=== PATIENT | female | born 1995 | race African-American/Black ===

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

== ENCOUNTER 2017-02-17 21:17 | Emergency (ER) | payer MEDICAID ==
[~2017-02-17] VITALS: Ht 154.9 cm; Wt 59.0 kg
[~2017-02-17 21:17] MED LIST changes: +MACROBID100 MG ORAL
--- NOTE | 2017-02-17 21:55 | Emergency Room Report ---
History of Present Illness General Chief Complaint: Flu Like Symptoms Source: Patient Present Illness [facility] The patient presents with cough and wheezing. The cough is not productive. She also has right ear pain. No sore throat. This for 2 weeks. She's not sure she's or not. She denies any dysuria. There's nausea. Her doctors have not prescribed inhalers for her. No vomit or change in bowels. No chest pain. Not worst attack. Has had prednisone in past. Sore throat, right ear pain, wheezing. Allergies: Coded Allergies: PEANUT (Verified Allergy, Severe, Hives, 02/17/17) LACTOSE (Verified Allergy, Mild, 02/17/17) Patient History Past Medical History: see triage record Social History: Denies: smoking Social History Narrative works security Last Menstrual Period: 01/29/17 Now: No : 0 Reviewed Nursing Documentation: PMH: Agreed, PSxH: Agreed Nursing Documentation-PMH Past Medical History: No History, Except For Hx Cardiac Problems: No Hx Asthma: Yes Hx Gastrointestinal Problems: No Hx Neurological Problems: No Review of Systems All Other Systems: negative except mentioned in HPI Physical Exam Vital Signs Date Time Temp Pulse Resp B/P Pulse Ox O2 Delivery O2 Flow Rate FiO2 02/17/17 21:29 98.4 76 16 112/68 98 Room Air Sp02 EP Interpretation: reviewed, normal General Appearance: well appearing, no apparent distress, GCS 15 Head: normocephalic, atraumatic ENT: normal pharynx, moist mucus membranes, other - TM R with redness, L normal Neck: full range of motion, supple Respiratory: no respiratory distress, speaking full sentences, wheezing, expiration Cardiovascular #1: regular rate, rhythm Gastrointestinal: normal inspection, normal bowel sounds Musculoskeletal: digits/nails normal, gait/station normal, normal range of motion, no calf tenderness Neurologic: alert, oriented x3, normal gait, grossly normal Psychiatric: mood/affect normal Skin: no rash Medical Decision Making Diagnostic Impression: Primary Impression: Otitis media Qualified Codes: H66.001 - Acute suppurative otitis media without spontaneous rupture of ear drum, right ear Additional Impression: Bronchospasm ER Course Patient with worsened asthma and R ear pain. Ddx: asthma, bronchitis, om, viral process. Need to exclude . Tx with breathing treatments. Also antibiotics indicated. Xrray not indicated. UA neg. Patient improved with treatment. Patient stable for outpatient observation and treatment. Last Vital Signs Date Time Temp Pulse Resp B/P Pulse Ox O2 Delivery O2 Flow Rate FiO2 02/17/17 23:09 98.4 16 112/68 97 Room Air 02/17/17 22:16 82 Status: improved Disposition: HOME, SELF-CARE Condition: Improved Scripts Albuterol Sulfate* (ALBUTEROL SULFATE MDI*) 8.5 Gm Hfa.aer.ad 2 PUFF INH Q6H, #1 EA 1 Refill Prov: Qasim Haley M.D. 02/17/17 Chlorpheniramine Maleate (CHLOR-TRIMETON) 4 Mg Tablet 4 MG PO Q6HR Y for congestion, #14 TAB Prov: Qasim Haley M.D. 02/17/17 Acetaminophen (Tylenol) 325 Mg Tablet 650 MG ORAL Q6H Y for Prn Pain/Headache/Temp > 101, #20 TAB 0 Refills Prov: Qasim Haley M.D. 02/17/17 Amoxicillin* (AMOXIL*) 500 Mg Capsule 500 MG ORAL THREE TIMES A DAY, #21 CAP Prov: Qasim Haley M.D. 02/17/17 Referrals: [facility],REFERRING (PCP) Qasim Haley M.D. February 17, 2017 21:55
[2017-02-17] MEDS ORDERED: Albuterol ud Inhalation HHN ONE (22:00)
[2017-02-17 22:30] LABS: APPEARANCE,URINE CLEAR; KETONES,URINE NEGATIVE (NEGATIVE); LEUKOCYTE ESTERASE ,URINE 3+ (NEGATIVE); NITRITE,URINE NEGATIVE (NEGATIVE); PH,URINE 7 (4.5-8.0); PROTEIN,URINE NEGATIVE (NEGATIVE); UROBILINOGEN,URINE NORMAL MG/DL (0.0-1.0)
[2017-02-17] MEDS ORDERED: ALBUTEROL SULF8.5 GM INH (22:47)
[2017-02-17] MEDS ORDERED: CHLOR-TRIMETON4 MG PO (22:47)
[2017-02-17] MEDS ORDERED: AMOXICILLIN500 MG ORAL (22:47)
[2017-02-17] MEDS ORDERED: TYLENOL325 MG ORAL (22:47)
[2017-02-17 22:53] LABS: BACTERIA,URINE FEW /HPF; RBC,URINE 0-2 /HPF (0 - 2); SQUAMOUS EPITHELIAL CELL,UR MODERATE /LPF (NONE/OCC)
[2017-02-17 23:09] VITALS: BP 112/68
== END 2017-02-17 23:14 | disposition home or self-care (01) ==
LOC: EMR 21:53
DX: H66.001 Acute suppurative otitis media without spontaneous rupture of ear drum, right ear (principal); J98.01 Acute bronchospasm; Z91.010 Allergy to peanuts; E73.9 Lactose intolerance, unspecified; J45.909 Unspecified asthma, uncomplicated
CPT/HCPCS: 81003; 81025; 94640; 94664; 99284

== ENCOUNTER 2017-05-25 21:19 | Emergency (ER) | payer MEDICAID ==
[~2017-05-25] VITALS: Ht 157.5 cm; Wt 57.2 kg
[~2017-05-25 21:19] MED LIST changes: +AMOXICILLIN500 MG ORAL; +CHLOR-TRIMETON4 MG PO
[2017-05-25] MEDS ORDERED: NKM (21:28)
[2017-05-25 21:31] VITALS: BP 108/64
--- NOTE | 2017-05-25 21:41 | Emergency Room Report ---
History of Present Illness General Chief Complaint: General Complaint Source: Patient Present Illness HPI Is a 21-year-old female with a history of asthma. She presents with chief complaint of not having her menstrual flow for 3 months. Also complaining of feeling nauseous and occasional vomiting the last 2 weeks. No breast tenderness. No abdominal pain. No bleeding. She said she felt weak but no fever or chills and no cough or congestion. No urinary complaint. She started control pill about 2 months ago. Was on it only for short period time. It did not agree with her and she stopped. She did have a negative test prior to be on control pill. Allergies: Coded Allergies: PEANUT (Verified Allergy, Severe, Hives, 02/17/17) LACTOSE (Verified Allergy, Mild, 02/17/17) Patient History Past Medical History: see triage record, old chart reviewed, asthma Past Surgical History: none Pertinent Family History: none Social History: Denies: smoking Last Menstrual Period: 3 months ago Now: No - Possible Immunizations: other Reviewed Nursing Documentation: PMH: Agreed, PSxH: Agreed Nursing Documentation-PMH Past Medical History: No Stated History Hx Cardiac Problems: No Hx Asthma: Yes Hx Gastrointestinal Problems: No Hx Neurological Problems: No Review of Systems Constitutional: Reports: weakness Eye: Denies: blurred vision, eye pain ENT: Denies: ear pain, nose congestion, throat swelling Respiratory: Denies: cough, shortness of breath Cardiovascular: Denies: chest pain, palpitations Gastrointestinal: Reports: nausea, vomiting, Denies: abdominal pain, diarrhea Musculoskeletal: Denies: back pain, joint pain Skin: Denies: rash Neurological: Denies: headache, numbness Endocrine: Denies: increased thirst, increased urine Hematologic/Lymphatic: Denies: easy bruising All Other Systems: negative except mentioned in HPI Physical Exam Vital Signs Date Time Temp Pulse Resp B/P Pulse Ox O2 Delivery O2 Flow Rate FiO2 05/25/17 21:22 98.2 72 16 108/64 99 Room Air vitals normal Sp02 EP Interpretation: reviewed, normal General Appearance: well appearing, no apparent distress, alert Head: normocephalic, atraumatic Eyes: bilateral eye EOMI, bilateral eye PERRL ENT: hearing grossly normal, normal pharynx Neck: full range of motion, supple, no meningismus Respiratory: chest non-tender, lungs clear, normal breath sounds Cardiovascular #1: regular rate, rhythm, no murmur Gastrointestinal: normal bowel sounds, non tender, no mass, no organomegaly, no bruit, non-distended Musculoskeletal: back normal, gait/station normal, normal range of motion Psychiatric: mood/affect normal Skin: warm/dry Medical Decision Making Diagnostic Impression: Primary Impression: UTI (urinary tract infection) Qualified Codes: N30.00 - Acute cystitis without hematuria Additional Impression: First trimester ER Course Is presents with symptoms consistent with morning sickness from . My bedside transabdominal ultrasound showed a live IUP with good movement. Heart rate was around 130. By my estimation, this is about 8-10 weeks. Urine showed leukocyte esterase and a few WBC. I will go ahead and cover with antibiotics. No evidence of ectopic. Patient is not on fertility medication. Last Vital Signs Date Time Temp Pulse Resp B/P Pulse Ox O2 Delivery O2 Flow Rate FiO2 05/25/17 21:31 98.2 72 16 108/64 99 Room Air Status: improved Disposition: HOME, SELF-CARE Condition: Stable Scripts Ondansetron (Zofran) 4 Mg Tablet 4 MG ORAL Q6H Y for Nausea & Vomiting, #30 TAB 0 Refills Prov: JIM BOWLES M.D. 05/25/17 Cmb#95/Iron/Fa/Dha ( + DHA COMBO PACK) 1 Each Combo..pkg 1 EACH PO DAILY, #90 PACK Prov: JIM BOWLES M.D. 05/25/17 Cephalexin* (KEFLEX*) 500 Mg Capsule 500 MG ORAL TID, #21 CAP 0 Refills Prov: JIM BOWLES M.D. 05/25/17 Additional Instructions: Followup with your DrMingo in 7 days. Return for pain or bleeding. You will be referred to see an DIRECTOR OF CARDIAC REHABILITATION. JIM BOWLES M.D. May 25, 2017 21:41
[2017-05-25 21:52] LABS: APPEARANCE,URINE CLEAR; KETONES,URINE NEGATIVE (NEGATIVE); LEUKOCYTE ESTERASE ,URINE 3+ (NEGATIVE); NITRITE,URINE NEGATIVE (NEGATIVE); PH,URINE 6 (4.5-8.0); PROTEIN,URINE 2+ (NEGATIVE); UROBILINOGEN,URINE 1 MG/DL (0.0-1.0)
[2017-05-25 22:12] LABS: BACTERIA,URINE FEW /HPF; RBC,URINE 0-2 /HPF (0 - 2); SQUAMOUS EPITHELIAL CELL,UR FEW /LPF (NONE/OCC)
[2017-05-25 22:30] VITALS: BP 109/77
[2017-05-25] MEDS ORDERED: KEFLEX500 MG ORAL (22:31)
[2017-05-25] MEDS ORDERED: ZOFRAN4 MG ORAL (22:31)
[2017-05-25] MEDS ORDERED: PRENATAL + DHA1 EAC2 PO (22:31)
[2017-05-25 22:37] VITALS: BP 108/64
== END 2017-05-25 23:30 | disposition home or self-care (01) ==
LOC: EMR 23:03
DX: O23.41 Unspecified infection of urinary tract in pregnancy, first trimester (principal); Z3A.00 Weeks of gestation of pregnancy not specified; Z91.010 Allergy to peanuts; Z91.011 Allergy to milk products
CPT/HCPCS: 81003; 81025; 99284

== ENCOUNTER 2017-06-15 22:34 | Emergency (ER) | payer MEDICAID ==
[~2017-06-15] VITALS: Ht 157.5 cm; Wt 58.5 kg
[~2017-06-15 22:34] MED LIST changes: +PRENATAL + DHA1 EAC2 PO; +ZOFRAN4 MG ORAL
[2017-06-15] MEDS ORDERED: Acetaminophen 500mg (ES) tab ORAL ONE (23:30)
[2017-06-15 23:33] LABS: APPEARANCE,URINE CLEAR; KETONES,URINE NEGATIVE (NEGATIVE); NITRITE,URINE NEGATIVE (NEGATIVE); PH,URINE 7 (4.5-8.0); PROTEIN,URINE NEGATIVE (NEGATIVE); UROBILINOGEN,URINE NORMAL MG/DL (0.0-1.0)
--- NOTE | 2017-06-15 23:37 | Emergency Room Report ---
History of Present Illness General Chief Complaint: Abdominal Pain Source: Patient, Family Member Present Illness HPI Is a 21-year-old female who is 1 para 0, approximately 13 weeks . She presents with chief complaint of left side pain. Onset for last 3 days. Crampy in nature. No nausea no vomiting. No dysuria frequency. Took Tylenol without much relief. Mateo seen at [facility] with ultrasound done. She also has puffiness to her eyes. She said she got a new puppy and seemed to be allergic to it. Has not anything for it. Allergies: Coded Allergies: PEANUT (Verified Allergy, Severe, Hives, 02/17/17) LACTOSE (Verified Allergy, Mild, 02/17/17) Patient History Past Medical History: see triage record, old chart reviewed Past Surgical History: none Social History: Denies: smoking Last Menstrual Period: Now: Yes Immunizations: other Reviewed Nursing Documentation: PMH: Agreed, PSxH: Agreed Nursing Documentation-PMH Hx Cardiac Problems: No Hx Asthma: Yes Hx Gastrointestinal Problems: No Hx Neurological Problems: No Review of Systems Eye: Denies: eye pain, blurred vision ENT: Denies: ear pain, nose congestion, throat swelling Respiratory: Denies: cough, shortness of breath Cardiovascular: Denies: chest pain, palpitations Gastrointestinal: Reports: abdominal pain, Denies: diarrhea, nausea, vomiting Musculoskeletal: Denies: back pain, joint pain Skin: Denies: rash Neurological: Denies: headache, numbness Endocrine: Denies: increased thirst, increased urine Hematologic/Lymphatic: Denies: easy bruising All Other Systems: negative except mentioned in HPI Physical Exam Vital Signs Date Time Temp Pulse Resp B/P (MAP) Pulse Ox O2 Delivery O2 Flow Rate FiO2 06/15/17 22:46 98.2 71 16 115/75 100 Room Air vitals normal Sp02 EP Interpretation: reviewed, normal General Appearance: well appearing, no apparent distress, alert Head: normocephalic, atraumatic Eyes: bilateral eye PERRL, bilateral eye EOMI, bilateral eye other - Mild puffiness to the left upper eyelid ENT: hearing grossly normal, normal pharynx Neck: full range of motion, supple, no meningismus Respiratory: chest non-tender, lungs clear, normal breath sounds Cardiovascular #1: regular rate, rhythm, no murmur Gastrointestinal: normal bowel sounds, non tender, no mass, no organomegaly, no bruit, non-distended, other - Gravid Musculoskeletal: back normal, gait/station normal, normal range of motion Neurologic: normal inspection, alert, oriented x3 Psychiatric: mood/affect normal Skin: warm/dry Medical Decision Making Diagnostic Impression: Primary Impression: Abdominal pain Qualified Codes: R10.32 - Left lower quadrant pain Additional Impression: Allergy Qualified Codes: T78.40XA - Allergy, unspecified, initial encounter ER Course Patient with abdominal pain during . No evidence of infection. No evidence of ectopic. Most likely round ligament pain. My bedside ultrasound showed a active live IUP. Good heartbeat. We'll discharge home. Last Vital Signs Date Time Temp Pulse Resp B/P (MAP) Pulse Ox O2 Delivery O2 Flow Rate FiO2 06/15/17 22:46 98.2 71 16 115/75 100 Room Air Status: improved Disposition: HOME, SELF-CARE Scripts Loratadine (CLARITIN) 10 Mg Capsule 10 MG ORAL DAILY, #30 CAP Prov: JIM BOWLES M.D. 06/15/17 Patient Instructions: Abdominal Pain During Additional Instructions: Followup with your DrMingo in 2-5 days. Return if worse. JIM BOWLES M.D. Jun 15, 2017 23:37
[2017-06-15 23:39] LABS: LEUKOCYTE ESTERASE ,URINE NEGATIVE (NEGATIVE)
[2017-06-15] MEDS ORDERED: CLARITIN10 M2 ORAL (23:56)
[2017-06-16 00:01] VITALS: BP 115/75
== END 2017-06-16 00:01 | disposition home or self-care (01) ==
LOC: EMR 23:05
DX: O26.891 Other specified pregnancy related conditions, first trimester (principal); Z3A.13 13 weeks gestation of pregnancy; R10.9 Unspecified abdominal pain; T78.40XA Allergy, unspecified, initial encounter; X58.XXXA Exposure to other specified factors, initial encounter; Z88.8 Allergy status to other drugs, medicaments and biological substances; J45.909 Unspecified asthma, uncomplicated; Z91.010 Allergy to peanuts
CPT/HCPCS: 81003; 99283

== ENCOUNTER 2017-07-10 11:00 | Emergency (ER) | payer MEDICAID ==
[~2017-07-10] VITALS: Ht 157.5 cm; Wt 59.0 kg
[~2017-07-10 11:00] MED LIST changes: +CLARITIN10 M2 ORAL
--- NOTE | 2017-07-10 11:31 | Emergency Room Report ---
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 and was not able to be seen denies any vomiting or diarrhea Patient was due for her ultrasound today Denies any dysuria frequency denies any flank pain denies any chest pain or short of breath Denies any vaginal bleeding or spotting Allergies: Coded Allergies: PEANUT (Verified Allergy, Severe, Hives, 02/17/17) LACTOSE (Verified Allergy, Mild, 02/17/17) Uncoded Allergies: DAIRY PRODUCTS (Allergy, Unknown, 07/10/17) Patient History Past Medical History: see triage record Pertinent Family History: none Last Menstrual Period: 02/2017 Now: Yes : 1 Reviewed Nursing Documentation: PMH: Agreed, PSxH: Agreed Nursing Documentation-PMH Past Medical History: No History, Except For Hx Cardiac Problems: No Hx Asthma: Yes Hx Gastrointestinal Problems: No Hx Neurological Problems: No Review of Systems All Other Systems: negative except mentioned in HPI Physical Exam Vital Signs Date Time Temp Pulse Resp B/P (MAP) Pulse Ox O2 Delivery O2 Flow Rate FiO2 07/10/17 11:05 97.5 71 14 107/69 100 Room Air Sp02 EP Interpretation: reviewed, normal General Appearance: well appearing, no apparent distress Head: normocephalic, atraumatic Eyes: bilateral eye PERRL, bilateral eye EOMI ENT: hearing grossly normal, normal pharynx, TMs + canals normal, uvula midline Neck: full range of motion, supple, no meningismus, no bony tend Respiratory: lungs clear, normal breath sounds, no rhonchi, no respiratory distress, no retraction, no accessory muscle use Cardiovascular #1: normal peripheral pulses, regular rate, rhythm, no edema, no gallop, no JVD, no murmur Gastrointestinal: normal bowel sounds, non tender, no mass, no guarding, no hernia, no pulsatile mass, no rebound, other - abdomen is palpable Genitourinary: no CVA tenderness Musculoskeletal: normal inspection Neurologic: oriented x3, responsive, 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, motor strength/ tone normal, sensory intact Psychiatric: mood/affect normal Skin: normal color, no rash, warm/dry, palpation normal Lymphatic: normal inspection, no adenopathy Medical Decision Making Diagnostic Impression: Primary Impression: UTI (urinary tract infection) ER Course Patient refused blood work which can limit the examination and workup Patient's urine did show positive bacteria She is placed on oral antibiotics for this Patient understands that without blood work it is difficult to evaluate kidney injury and other concerning pathology heart tone reveals heart rate in the 130s, there is no other emergency criteria for pelvic ultrasound given the lack of any cramping or bleeding And the patient stable for close outpatient followup Labs Test 07/10/17 11:25 Urine Color Pale yellow Urine Appearance Cloudy Urine pH 7 (4.5-8.0) Urine Specific Rheems 1.005 (1.005-1.035) Urine Protein Negative (NEGATIVE) Urine Glucose (UA) Negative (NEGATIVE) Urine Ketones Negative (NEGATIVE) Urine Occult Blood Negative (NEGATIVE) Urine Nitrite Negative (NEGATIVE) Urine Bilirubin Negative (NEGATIVE) Urine Urobilinogen Normal MG/DL (0.0-1.0) Urine Leukocyte Esterase 3+ (NEGATIVE) Urine RBC 2-4 /HPF (0 - 2) Urine WBC 15-20 /HPF (0 - 2) Urine Squamous Epithelial Cells Many /LPF (NONE/OCC) Urine Amorphous Sediment Few /LPF (NONE) Urine Bacteria Moderate /HPF (NONE) Last Vital Signs Date Time Temp Pulse Resp B/P (MAP) Pulse Ox O2 Delivery O2 Flow Rate FiO2 07/10/17 11:05 97.5 71 14 107/69 100 Room Air Status: improved Disposition: HOME, SELF-CARE Condition: Improved Scripts Pnv Cmb#21/Iron/Folic Acid ( COMPLETE CAPLET) 1 Each Tablet 1 EACH PO DAILY, #20 TAB Prov: MOLLY DUNN.OMingo 07/10/17 Nitrofurantoin Monohyd/M-Cryst* (MACROBID 100 MG*) 100 Mg Capsule 100 MG ORAL EVERY 12 HOURS for 7 Days, CAP Prov: MOLLY DUNN D.O. 07/10/17 Referrals: [facility],REFERRING (PCP) Additional Instructions: Patient is provided with the discharge instructions notified to follow up with primary doctor in the next 2-3 days otherwise return to the er with any worsening symptoms. Please note that this report is being documented using DRAGON technology. This can lead to erroneous entry secondary to incorrect interpretation by the dictating instrument. MOLLY DUNN D.O. Jul 10, 2017 11:31
[2017-07-10 11:36] LABS: APPEARANCE,URINE CLOUDY; KETONES,URINE NEGATIVE (NEGATIVE); LEUKOCYTE ESTERASE ,URINE 3+ (NEGATIVE); NITRITE,URINE NEGATIVE (NEGATIVE); PH,URINE 7 (4.5-8.0); PROTEIN,URINE NEGATIVE (NEGATIVE); UROBILINOGEN,URINE NORMAL MG/DL (0.0-1.0)
[2017-07-10 11:45] LABS: AMORPHOUS SEDIMENT,UR FEW /LPF; BACTERIA,URINE MODERATE /HPF; SQUAMOUS EPITHELIAL CELL,UR MANY /LPF (NONE/OCC); WBC,URINE 15-20 /HPF (0 - 2)
[2017-07-10] MEDS ORDERED: NITROFURANTOIN100 M2 ORAL (12:08)
[2017-07-10] MEDS ORDERED: PRENATAL COMPL1 EAC1 PO (12:11)
[2017-07-10 12:23] VITALS: BP 110/76
[2017-07-10 12:24] VITALS: BP 107/69
== END 2017-07-10 12:17 | disposition home or self-care (01) ==
LOC: EMR 11:25
DX: O26.892 Other specified pregnancy related conditions, second trimester (principal); Z3A.17 17 weeks gestation of pregnancy; R10.13 Epigastric pain; J45.909 Unspecified asthma, uncomplicated; Z91.011 Allergy to milk products; Z91.010 Allergy to peanuts
CPT/HCPCS: 81003; 87086; 99283

== ENCOUNTER 2017-09-08 09:07 | Emergency (ER) | payer MEDICAID ==
[~2017-09-08] VITALS: Ht 157.5 cm; Wt 70.3 kg
[~2017-09-08 09:07] MED LIST changes: +NITROFURANTOIN100 M2 ORAL; +PRENATAL COMPL1 EAC1 PO
[2017-09-08 09:20] VITALS: BP 108/61
[2017-09-08 09:51] LABS: APPEARANCE,URINE CLEAR; KETONES,URINE NEGATIVE (NEGATIVE); LEUKOCYTE ESTERASE ,URINE 3+ (NEGATIVE); NITRITE,URINE NEGATIVE (NEGATIVE); PH,URINE 7 (4.5-8.0); PROTEIN,URINE 1+ (NEGATIVE); UROBILINOGEN,URINE NORMAL MG/DL (0.0-1.0)
[2017-09-08 09:54] LABS: BASOPHILS % (AUTO) 0.5 % (0.0-2.0); MEAN CORPUSCULAR HEMOGLOBIN 33.4 PG (27.0-31.0); MEAN CORPUSCULAR HGB CONC 35.2 G/DL (32.0-36.0); MEAN CORPUSCULAR VOLUME 95 FL (80-99); MEAN PLATELET VOLUME 8.2 FL (6.5-10.1); MONOCYTES % (AUTO) 6.3 % (1.0-10.0); NEUTROPHILS % (AUTO) 69.2 % (45.0-75.0); PLATELET COUNT 216 K/UL (150-450); RED BLOOD COUNT 3.64 M/UL (4.20-5.40); RED CELL DISTRIBUTION WIDTH 11.3 % (11.6-14.8); WHITE BLOOD COUNT 8.6 K/UL (4.8-10.8)
--- NOTE | 2017-09-08 09:57 | Emergency Room Report ---
History of Present Illness General Chief Complaint: Headache Source: Patient Present Illness HPI 21-year-old female, 26 weeks , p/w PHILLIPS for 3 days. Patient describes PHILLIPS as gradual in onset, throbbing in nature, localized to R side of head, non-radiating, constant, 8/10 in severity. Denies photophobia, phonophobia. Patient states that she has had a mild headache at the beginning of the , however no other history of headaches in the past Denies fever, chills, neck pain, blurry vision, motor/sensory weakness. Allergies: Coded Allergies: PEANUT (Verified Allergy, Severe, Hives, 02/17/17) LACTOSE (Verified Allergy, Mild, 02/17/17) Uncoded Allergies: DAIRY PRODUCTS (Allergy, Unknown, 07/10/17) Patient History Past Medical History: see triage record Past Surgical History: none Pertinent Family History: none Last Menstrual Period: february Now: Yes - 26 weeks : 1 Reviewed Nursing Documentation: PMH: Agreed, PSxH: Agreed Nursing Documentation-PMH Past Medical History: No History, Except For Hx Cardiac Problems: No Hx Asthma: Yes Hx Gastrointestinal Problems: No Hx Neurological Problems: No Review of Systems All Other Systems: negative except mentioned in HPI Physical Exam Vital Signs Date Time Temp Pulse Resp B/P (MAP) Pulse Ox O2 Delivery O2 Flow Rate FiO2 09/08/17 09:08 97.9 82 18 113/64 99 Room Air Sp02 EP Interpretation: reviewed, normal General Appearance: alert, GCS 15, non-toxic, mild distress Head: normocephalic, atraumatic Eyes: bilateral eye normal inspection, bilateral eye PERRL, bilateral eye EOMI ENT: normal ENT inspection, normal pharynx, normal voice, moist mucus membranes Neck: normal inspection, full range of motion, supple Respiratory: normal inspection, lungs clear, normal breath sounds, no respiratory distress, no retraction, no wheezing, speaking full sentences, chest symmetrical Cardiovascular #1: normal inspection, regular rate, rhythm, no edema, normal capillary refill Cardiovascular #2: 2+ radial (R), 2+ radial (L) Gastrointestinal: normal inspection, non tender, soft, non-distended, no guarding Musculoskeletal: normal inspection, back normal, normal range of motion, non- tender Neurologic: normal inspection, alert, oriented x3, responsive, violin repairer III-XII nml as tested, motor strength/tone normal, sensory intact, normal gait, speech normal Psychiatric: normal inspection, judgement/insight normal, memory normal Skin: normal inspection, normal color, no rash, warm/dry, well hydrated, normal turgor Medical Decision Making Diagnostic Impression: Primary Impression: Headache Additional Impression: ER Course 21-year-old female with headache for 3 days DDX: Primary PHILLIPS such as migraine, tension PHILLIPS, cluster. vs. dehydration Given that patient is , cerebral venous thrombosis isn't differential, preeclampsia although patient is not hypertensive Other serious diagnoses on differential such as intracranial bleed/sah Very low suspicion for meningitis/encephalitis -- there are no neurological signs/symptoms/findings on physical exam and patient appears nontoxic. Plan: Pain control Tylenol, fluid ER course: Patient continues to appear nontoxic, aox3, no neurologic symptoms. Patient still complains of mild headache although she does feel better. She has been conversing with mother at bedside, on her phone, does not appear to be in acute distress MR venogram of the brain does not demonstrate cerebral venous thrombosis Patient noted to have a beta-hCG of around 5000, which can be normal at 26 weeks , however will perform pelvic ultrasound Patient states that her last pelvic ultrasound was performed about 3 weeks ago, and she was told it was normal US performed -- IUP with FHR 135 BPs during ED stay have been normal she feels much better and wants to eat will dc home Disposition: Patient will be discharged to home. Patient instructed to follow up with OBGYN within 5 days. Patient also instructed to follow up with a neurologist within 1 week. Strict return precautions discussed with patient such as severe/worsening headache, nausea, vomiting, fever chills, neck pain. Patient verbalized understanding. Please note that this Emergency Department Report was dictated using edohigh lift driver technology software, occasionally this can lead to erroneous entry secondary to interpretation by the dictation equipment. Rhythm Strip EP Interpretation: Yes Rate: 90 Rhythm: NSR, no PVCs, no ectopy Laboratory Tests Test 09/08/17 09:35 White Blood Count 8.6 K/UL (4.8-10.8) Red Blood Count 3.64 M/UL (4.20-5.40) L Hemoglobin 12.2 G/DL (12.0-16.0) Hematocrit 34.6 % (37.0-47.0) L Mean Corpuscular Volume 95 FL (80-99) Mean Corpuscular Hemoglobin 33.4 PG (27.0-31.0) H Mean Corpuscular Hemoglobin Concent 35.2 G/DL (32.0-36.0) Red Cell Distribution Width 11.3 % (11.6-14.8) L Platelet Count 216 K/UL (150-450) Mean Platelet Volume 8.2 FL (6.5-10.1) Neutrophils (%) (Auto) 69.2 % (45.0-75.0) Lymphocytes (%) (Auto) 21.0 % (20.0-45.0) Monocytes (%) (Auto) 6.3 % (1.0-10.0) Eosinophils (%) (Auto) 3.0 % (0.0-3.0) Basophils (%) (Auto) 0.5 % (0.0-2.0) Prothrombin Time 9.4 SEC (9.30-11.50) Prothrombin Time INR 0.9 (0.9-1.1) PTT 32 SEC (23-33) Urine Color Yellow Urine Appearance Clear Urine pH 7 (4.5-8.0) Urine Specific [place] 1.005 (1.005-1.035) Urine Protein 1+ (NEGATIVE) H Urine Glucose (UA) Negative (NEGATIVE) Urine Ketones Negative (NEGATIVE) Urine Occult Blood 1+ (NEGATIVE) H Urine Nitrite Negative (NEGATIVE) Urine Bilirubin Negative (NEGATIVE) Urine Urobilinogen Normal MG/DL (0.0-1.0) Urine Leukocyte Esterase 3+ (NEGATIVE) H Urine RBC 2-4 /HPF (0 - 2) H Urine WBC 15-20 /HPF (0 - 2) H Urine Squamous Epithelial Cells Moderate /LPF (NONE/OCC) H Urine Amorphous Sediment Few /LPF (NONE) H Urine Bacteria Few /HPF (NONE) Urine HCG, Qualitative Positive Sodium Level 137 MMOL/L (136-145) Potassium Level 3.9 MMOL/L (3.5-5.1) Chloride Level 104 MMOL/L (98-107) Carbon Dioxide Level 24 MMOL/L (21-32) Anion Gap 9 mmol/L (5-15) Blood Urea Nitrogen 7 mg/dL (7-18) Creatinine 0.6 MG/DL (0.55-1.30) Estimate Glomerular Filtration Rate > 60 mL/min (>60) Glucose Level 88 MG/DL (74-106) Calcium Level 9.0 MG/DL (8.5-10.1) Total Bilirubin 0.2 MG/DL (0.2-1.0) Aspartate Amino Transferase (AST) 9 U/L (15-37) L Alanine Aminotransferase (ALT) 20 U/L (12-78) Alkaline Phosphatase 59 U/L (46-116) Total Protein 7.3 G/DL (6.4-8.2) Albumin 3.1 G/DL (3.4-5.0) L Globulin 4.2 g/dL Albumin/Globulin Ratio 0.7 (1.0-2.7) L Human Chorionic Gonadotropin, Quant 5073 mIU/mL (1-6) H CT/MRI/US Diagnostic Results CT/MRI/US Diagnostic Results #1: Imaging Test Ordered: MR venogram of brain Impression Procedure: MRA Head no Contrast Indications: PAIN, headache, patient Technique: 2-D [id number] images obtained with arterial saturation bands obtained through the brain. MIP reconstructions were generated in multiple rotational projections Comparison: None Findings: The superior sagittal sinus, transverse and sigmoid sinuses, upstream internal jugular veins, the cerebral veins, and cortical veins all appear patent , without signal void or other findings to suggest acute thrombosis. Impression: Negative for evidence of cerebral venous thrombosis. CT/MRI/US Diagnostic Results #2: Imaging Test Ordered: US pelvic Impression IUP with FHR 135 Last Vital Signs Date Time Temp Pulse Resp B/P (MAP) Pulse Ox O2 Delivery O2 Flow Rate FiO2 09/08/17 09:08 97.9 82 18 113/64 99 Room Air Disposition: HOME, SELF-CARE Condition: Improved [facility]errals: [facility] (PCP) Viri Lyons M.D. Sep 08, 2017 09:57
[2017-09-08 10:05] LABS: AMORPHOUS SEDIMENT,UR FEW /LPF; BACTERIA,URINE FEW /HPF; SQUAMOUS EPITHELIAL CELL,UR MODERATE /LPF (NONE/OCC); WBC,URINE 15-20 /HPF (0 - 2)
[2017-09-08 10:06] LABS: INR 0.9 (0.9-1.1); PROTHROMBIN TIME 9.4 SEC (9.30-11.50)
[2017-09-08 10:08] LABS: ANION GAP 9 mmol/L (5-15); CARBON DIOXIDE 24 MMOL/L (21-32); CHLORIDE 104 MMOL/L (98-107); CREATININE 0.6 MG/DL (0.55-1.30); GLOMERULAR FILTRATION RATE > 60 mL/min (>60); POTASSIUM 3.9 MMOL/L (3.5-5.1); SODIUM 137 MMOL/L (136-145)
[2017-09-08 10:15] LABS: ALANINE AMINOTRANSFERASE 20 U/L (12-78); ALBUMIN/GLOBULIN RATIO 0.7 (1.0-2.7); ASPARTATE AMINO TRANSFERASE 9 U/L (15-37); TOTAL PROTEIN 7.3 G/DL (6.4-8.2)
[2017-09-08 11:29] VITALS: BP 99/65
--- NOTE | 2017-09-08 11:53 | Diagnostic Imaging Report ---
Indications: PAIN, headache, patient Technique: 2-D [id number] images obtained with arterial saturation bands obtained through the brain. MIP reconstructions were generated in multiple rotational projections Comparison: None Findings: The superior sagittal sinus, transverse and sigmoid sinuses, upstream internal jugular veins, the cerebral veins, and cortical veins all appear patent, without signal void or other findings to suggest acute thrombosis. Impression: Negative for evidence of cerebral venous thrombosis.
--- NOTE | 2017-09-08 13:43 | Diagnostic Imaging Report ---
Indication: Positive test, pelvic pain Technique: Transabdominal images Comparison: None Findings: There is a single live intrauterine . This demonstrates breech presentation. There is anterior fundal placenta. This clears the internal cervical os. There is positive heart activity, heart rate 135 beats per minute. The cervix is closed, endocervical canal measuring 3.4 cm in length. Normal amniotic fluid volume. measurements as follows: Biparietal diameter 65 mm, 26 weeks one day; abdominal circumference 237 mm, 25 weeks 5 days; abdominal circumference 215 mm, 26 weeks zero days; femur length 49 mm, 26 weeks 2 days. Estimated gestational age by average ultrasound measurements is 26 weeks zero days. Estimated gestational age by dates is 25 weeks 5 days. Estimated date of delivery is 12/15/2017 Only limited survey of anatomy, due to the emergent nature exam. No gross anomalies. Grossly normal spine, extremities, cord insertion, three-vessel cord, kidneys, bladder. Impression: 26 week single live intrauterine . No unusual features. heart rate 135 beats per minute Findings discussed by phone with Dr. Lyons in the emergency room at the time of interpretation
[2017-09-08 13:50] VITALS: BP 105/58
== END 2017-09-08 13:45 | disposition home or self-care (01) ==
LOC: EMR 09:36
DX: O26.892 Other specified pregnancy related conditions, second trimester (principal); Z3A.26 26 weeks gestation of pregnancy; R51 Headache; Z88.8 Allergy status to other drugs, medicaments and biological substances; Z91.010 Allergy to peanuts; J45.909 Unspecified asthma, uncomplicated
CPT/HCPCS: 36415; 70544; 76805; 80053; 81003; 81025; 84702; 85025; 85610; 85730; 87086; 96360; 96361; 99284

== ENCOUNTER 2017-10-30 19:43 | Emergency (ER) | payer MEDICAID ==
[~2017-10-30] VITALS: Ht 91.4 cm; Wt 80.3 kg
[2017-10-30] MEDS ORDERED: ACETAMINOPHEN325 M1 ORAL (20:00)
[2017-10-30 20:10] VITALS: BP 126/68
[2017-10-30 20:14] VITALS: BP 126/68
--- NOTE | 2017-10-31 14:09 | Emergency Room Report ---
History of Present Illness General Chief Complaint: Abdominal Pain Source: Patient Present Illness HPI 22-year-old female presents ED for evaluation. Patient is 34 weeks . States she's complaining of dizziness, weakness also complaining of cramping abdominal pain which started today. Denies any vaginal bleeding or discharge. Pain is cramping, 7 at 10, nonradiating. This is her first . Denies fevers or chills. Denies nausea or vomiting. Denies chest pain or shortness of breath. No aggravating or relieving factors. Denies any other associated symptoms Allergies: Coded Allergies: PEANUT (Verified Allergy, Severe, Hives, 02/17/17) LACTOSE (Verified Allergy, Mild, 02/17/17) Uncoded Allergies: DAIRY PRODUCTS (Allergy, Unknown, 07/10/17) Patient History Past Medical History: asthma Past Surgical History: none Pertinent Family History: none Social History: Denies: smoking, alcohol use, drug use Last Menstrual Period: 03/11/17 Now: No : 1 Para: 0 Immunizations: UTD Reviewed Nursing Documentation: PMH: Agreed, PSxH: Agreed Nursing Documentation-PMH Hx Cardiac Problems: No Hx Asthma: Yes Hx Gastrointestinal Problems: No Hx Neurological Problems: No Review of Systems All Other Systems: negative except mentioned in HPI Physical Exam Vital Signs Date Time Temp Pulse Resp B/P (MAP) Pulse Ox O2 Delivery O2 Flow Rate FiO2 10/30/17 19:55 98.6 86 14 126/68 97 Room Air Sp02 EP Interpretation: reviewed, normal General Appearance: no apparent distress, alert, GCS 15, non-toxic Head: normocephalic, atraumatic Eyes: bilateral eye normal inspection, bilateral eye PERRL ENT: hearing grossly normal, normal pharynx, no angioedema, normal voice Neck: full range of motion, supple/symm/no masses Respiratory: chest non-tender, lungs clear, normal breath sounds, speaking full sentences Cardiovascular #1: regular rate, rhythm, no edema Cardiovascular #2: 2+ carotid (R), 2+ carotid (L), 2+ radial (R), 2+ radial (L) , 2+ dorsalis pedis (R), 2+ dorsalis pedis (L) Gastrointestinal: normal bowel sounds, soft, non-distended, no guarding, no rebound, other - gravid uterus Rectal: deferred Genitourinary: normal inspection, no CVA tenderness Musculoskeletal: back normal, gait/station normal, normal range of motion, non- tender Neurologic: alert, oriented x3, responsive, motor strength/tone normal, sensory intact, speech normal Psychiatric: judgement/insight normal, memory normal, mood/affect normal, no suicidal/homicidal ideation Reflexes: 3+ bicep (R), 3+ bicep (L), 3+ tricep (R), 3+ tricep (L), 3+ knee (R) , 3+ knee (L) Skin: normal color, no rash, warm/dry, well hydrated Lymphatic: no adenopathy Medical Decision Making Diagnostic Impression: Primary Impression: Qualified Codes: Z3A.34 - 34 weeks gestation of ER Course Hospital Course 22-year-old female presents to ED complaining of lower abdominal pain. 34 weeks Differential diagnoses include: gastrits, gastroenterits, ectopic , ovarian torsion/cyst, UTI Clinical course Patient placed on stretcher in ED. After initial history and physical, I explained to the patient and family that we do not have labor and delivery here. We do not have AIRLINE MECH[employer]IC. We do not have monitoring. I explained that I can ordered labs and ultrasound facility transfer to [facility]. Family patient states that they would rather go to [facility] on their own because it will be faster. Understands the risks of leaving. Patient has competency to make her own decisions. Signed AMA form. Diagnoses- Patient leaves AMA Last Vital Signs Date Time Temp Pulse Resp B/P (MAP) Pulse Ox O2 Delivery O2 Flow Rate FiO2 10/30/17 20:14 98.6 86 14 126/68 97 Room Air Status: unchanged Disposition: AGAINST MEDICAL ADVICE Condition: Unknown Referrals: [facility] (PCP) MENA LIVINGSTON M.D. Oct 31, 2017 14:09
== END 2017-10-30 20:14 | disposition left against medical advice (07) ==
LOC: EMR 20:05
DX: O26.893 Other specified pregnancy related conditions, third trimester (principal); Z3A.34 34 weeks gestation of pregnancy; J45.909 Unspecified asthma, uncomplicated; R42 Dizziness and giddiness; R53.1 Weakness; R10.9 Unspecified abdominal pain; Z91.010 Allergy to peanuts; Z91.018 Allergy to other foods
CPT/HCPCS: 99282

== ENCOUNTER 2017-12-19 21:14 | Emergency (ER) | payer MEDICAID ==
[~2017-12-19] VITALS: Ht 160 cm; Wt 91.6 kg
[~2017-12-19 21:14] MED LIST changes: +ACETAMINOPHEN325 M1 ORAL
[2017-12-19 21:36] VITALS: BP 127/86
[2017-12-19 22:24] LABS: APPEARANCE,URINE SLIGHTLY CLOUDY; BILIRUBIN, URINE NEGATIVE (NEGATIVE); COLOR,URINE PALE YELLOW; GLUCOSE, URINE (UA) NEGATIVE (NEGATIVE); KETONES,URINE NEGATIVE (NEGATIVE); LEUKOCYTE ESTERASE ,URINE 3+ (NEGATIVE); NITRITE,URINE NEGATIVE (NEGATIVE); PH,URINE 8 (4.5-8.0); PROTEIN,URINE 1+ (NEGATIVE); UROBILINOGEN,URINE NORMAL MG/DL (0.0-1.0)
[2017-12-19] MEDS ORDERED: PHENAZOPYRIDIN100 MG ORAL (22:46)
[2017-12-19] MEDS ORDERED: KEFLEX500 MG ORAL (22:46)
[2017-12-19 22:53] VITALS: BP 127/86
--- NOTE | 2017-12-20 00:36 | Emergency Room Report ---
History of Present Illness General Chief Complaint: Female Urogenital Problems Source: Patient Present Illness HPI 22-year-old female presents ED for evaluation. Patient states she is experiencing burning urination times one day. Denies fevers or chills. Denies flank pain. Denies nausea or vomiting. Patient is 4 days . Had vaginal delivery with episiotomy performed. Denies any vaginal bleeding. Denies any discharge. No other aggravating or relieving factors. Denies any other associated symptoms Allergies: Coded Allergies: PEANUT (Verified Allergy, Severe, Hives, 02/17/17) LACTOSE (Verified Allergy, Mild, 02/17/17) Uncoded Allergies: DAIRY PRODUCTS (Allergy, Unknown, 07/10/17) Patient History Past Medical History: asthma Past Surgical History: none Pertinent Family History: none Social History: Denies: smoking, alcohol use, drug use Last Menstrual Period: 4 DAYS POST Now: No Immunizations: UTD Reviewed Nursing Documentation: PMH: Agreed, PSxH: Agreed Nursing Documentation-PMH Hx Cardiac Problems: No Hx Asthma: Yes Hx Gastrointestinal Problems: No Hx Neurological Problems: No Review of Systems All Other Systems: negative except mentioned in HPI Physical Exam Vital Signs Date Time Temp Pulse Resp B/P (MAP) Pulse Ox O2 Delivery O2 Flow Rate FiO2 12/19/17 21:20 98.1 88 16 127/86 98 Room Air 98.1 Sp02 EP Interpretation: reviewed, normal General Appearance: no apparent distress, alert, GCS 15, non-toxic Head: normocephalic, atraumatic Eyes: bilateral eye normal inspection, bilateral eye PERRL ENT: hearing grossly normal, normal pharynx, no angioedema, normal voice Neck: full range of motion, supple/symm/no masses Respiratory: chest non-tender, lungs clear, normal breath sounds, speaking full sentences Cardiovascular #1: regular rate, rhythm, no edema Cardiovascular #2: 2+ carotid (R), 2+ carotid (L), 2+ radial (R), 2+ radial (L) , 2+ dorsalis pedis (R), 2+ dorsalis pedis (L) Gastrointestinal: normal bowel sounds, non tender, soft, non-distended, no guarding, no rebound Rectal: deferred Genitourinary: normal inspection, no CVA tenderness Musculoskeletal: back normal, gait/station normal, normal range of motion, non- tender Neurologic: alert, oriented x3, responsive, motor strength/tone normal, sensory intact, speech normal Psychiatric: judgement/insight normal, memory normal, mood/affect normal, no suicidal/homicidal ideation Reflexes: 3+ bicep (R), 3+ bicep (L), 3+ tricep (R), 3+ tricep (L), 3+ knee (R) , 3+ knee (L) Skin: normal color, no rash, warm/dry, well hydrated Lymphatic: no adenopathy Medical Decision Making Diagnostic Impression: Primary Impression: UTI (urinary tract infection) Qualified Codes: N39.0 - Urinary tract infection, site not specified ER Course Hospital Course 22-year-old female presents to ED complaining of dysuria. 4 days Differential diagnoses include: UTI, cystitis, pyelonephritis Clinical course Patient placed on stretcher. After initial history and physical I ordered UA given tylenol in ED for headache/pain UA + bacteria. Discussed findings with patient. We'll prescribe antibiotics, Pyridium. Patient is currently not breast-feeding Diagnosis - UTI Stable and discharged home with prescriptions for Rx Keflex, Pyridium. Instructed to followup with PMD. Return to ED if symptoms recur or worsen Labs Test 12/19/17 21:41 Urine Color Pale yellow Urine Appearance Slightly cloudy Urine pH 8 (4.5-8.0) Urine Specific [place] 1.010 (1.005-1.035) Urine Protein 1+ (NEGATIVE) Urine Glucose (UA) Negative (NEGATIVE) Urine Ketones Negative (NEGATIVE) Urine Occult Blood 5+ (NEGATIVE) Urine Nitrite Negative (NEGATIVE) Urine Bilirubin Negative (NEGATIVE) Urine Urobilinogen Normal MG/DL (0.0-1.0) Urine Leukocyte Esterase 3+ (NEGATIVE) Urine RBC 5-10 /HPF (0 - 2) Urine WBC 2-4 /HPF (0 - 2) Urine Squamous Epithelial Cells Few /LPF (NONE/OCC) Urine Bacteria Few /HPF (NONE) Last Vital Signs Date Time Temp Pulse Resp B/P (MAP) Pulse Ox O2 Delivery O2 Flow Rate FiO2 12/19/17 22:53 98.1 88 16 127/86 98 Room Air 98.1 Status: improved Disposition: HOME, SELF-CARE Condition: Stable Scripts Phenazopyridine Hcl* (PYRIDIUM*) 100 Mg Tablet 100 MG ORAL THREE TIMES A DAY for 3 Days, TAB Prov: MENA LIVINGSTON M.D. 12/19/17 Cephalexin* (KEFLEX*) 500 Mg Capsule 500 MG ORAL Q6H, #28 CAP 0 Refills Prov: MENA LIVINGSTON M.D. 12/19/17 Referrals: [facility] (PCP) Patient Instructions: Urinary Tract Infection MENA LIVINGSTON M.D. Dec 20, 2017 00:36
== END 2017-12-19 22:53 | disposition home or self-care (01) ==
LOC: EMR 22:51
DX: N39.0 Urinary tract infection, site not specified (principal); J45.909 Unspecified asthma, uncomplicated; Z91.010 Allergy to peanuts; Z91.018 Allergy to other foods
CPT/HCPCS: 81003; 99284

== ENCOUNTER 2018-04-24 11:32 | Emergency (ER) | payer MEDICAID ==
[~2018-04-24] VITALS: Ht 157.5 cm; Wt 73.9 kg
[~2018-04-24 11:32] MED LIST changes: +PHENAZOPYRIDIN100 MG ORAL
[2018-04-24 11:55] VITALS: BP 120/70
--- NOTE | 2018-04-24 12:20 | Emergency Room Report ---
History of Present Illness General Chief Complaint: Generalized Weakness Source: Patient (Corby Palomino) Present Illness HPI 22-year-old female patient presents ER with multiple complaints. Patient reports generalized weakness and pain that began in her right ankle and travel throughout the rest of her body x1 week. Patient also complains of sore throat and headache. Reports history of migraine headaches, states this feels like a migraine similar to ones in the past. Denies vision changes, denies phonophobia. Denies vomiting or diarrhea. Denies shortness of breath. Reports history of asthma, reports has not taken inhaler because has not needed medication. Denies history of cardiovascular disease. Denies neck pain. Reports Tylenol for pain symptoms yesterday and helped alleviate symptoms, has not taken medication since that time. Denies other acute symptoms. Denies abdominal pain. Denies dysuria, hematuria, frequency, urgency, vaginal discharge. Denies other acute symptoms. Reports hx of anxiety, denies taking medications currently, reports previously took medication but they did not help. Reports lots of stress at home recently. (Corby Palomino) Allergies: Coded Allergies: PEANUT (Verified Allergy, Severe, Hives, 02/17/17) LACTOSE (Verified Allergy, Mild, 02/17/17) Uncoded Allergies: DAIRY PRODUCTS (Allergy, Unknown, 07/10/17) Patient History Past Medical History: see triage record Last Menstrual Period: 04/01/2018 Reviewed Nursing Documentation: PMH: Agreed; PSxH: Agreed (Corby Palomino) Nursing Documentation-PMH Past Medical History: No History, Except For Hx Cardiac Problems: No Hx Asthma: Yes Hx Gastrointestinal Problems: No Hx Neurological Problems: No (Corby Palomino) Review of Systems All Other Systems: negative except mentioned in HPI (Corby Palomino) Physical Exam Vital Signs Date Time Temp Pulse Resp B/P (MAP) Pulse Ox O2 Delivery O2 Flow Rate FiO2 04/24/18 11:40 100.7 85 18 120/70 97 Room Air 100.8 Sp02 EP Interpretation: reviewed, normal General Appearance: well appearing, no apparent distress, alert, GCS 15, non- toxic Head: normocephalic, atraumatic Eyes: bilateral eye normal inspection, bilateral eye PERRL ENT: hearing grossly normal, normal pharynx, no angioedema, normal voice, TMs + canals normal, uvula midline, moist mucus membranes, other - no tonsillar swelling Neck: full range of motion, no bony tend Respiratory: lungs clear, normal breath sounds, no rhonchi, no respiratory distress, no accessory muscle use, no wheezing, speaking full sentences, other - no stridor; chest TTP, no deformity, no bruising, no flail chest Cardiovascular #1: regular rate, rhythm, no edema Gastrointestinal: non tender, soft, no mass, non-distended, no guarding, no rebound Genitourinary: no CVA tenderness Musculoskeletal: back normal, digits/nails normal, gait/station normal, normal range of motion, non-tender Neurologic: alert, oriented x3, responsive, motor strength/tone normal, sensory intact, cerebellar normal, normal gait, speech normal, other - negative Kernig, negative Brudzinski Psychiatric: mood/affect normal Skin: no rash Lymphatic: no adenopathy (Corby Palomino) Medical Decision Making PA Attestation Dr. Haley is my supervising Physician whom patient management has been discussed with. (Corby Palomino P.AMingo) Diagnostic Impression: Primary Impression: Acute viral syndrome ER Course Pt. presents to the ED with multiple complaints. Ddx considered but are not limited to UTI, migraine, headache, stress. DDX considered but are not limited to pharyngitis, laryngitis, URI, peritonsillar abscess, tonsillitis. Low suspicion for peritonsillar abscess, no neck stiffness, no hot potato voice , no stridor. Vital signs: are WNL, pt. is afebrile ER COURSE: Ordered Tylenol and viscous lidocaine. On PE, chest is TTP; chest pain likely musculoskeletal in nature secondary to cough, does not require cardiac workup at this time. Patient instructed to take NSAIDs as needed for pain symptoms. CXR negative for acute disease, lung clear to auscultation, no wheezes, rhonci, or rales. UA unremarkable, no nitrites, low suspicion for UTI at this time, does not require antibiotics. Urine negative, discuss results with patient. Patient presentation and symptoms consistent with possible viral syndrome, may be exacerbated by stress at home. Avoid stressors at home. Supportive care, treat symptomatically. Drink plenty of fluids, if concern for nausea and vomiting, BRAT diet: bananas, rice, applesauce, toast. Take Tylenol for pain symptoms. Return to ER for new or worsening of symptoms. patient reports feeling better prior to discharge, smiling, nontoxic appearing, ambulating independently without difficulty. Patient is afebrile prior to discharge. DISCHARGE: Rx provided for Tylenol At this time pt is stable for d/c to home. Patient is resting comfortably, in no acute distress, nontoxic appearing, talking without difficulty. Patient to take medications as instructed Will provide with patient care instructions and any necessary prescriptions. Care plan and follow-up instructions provided. Patient instructed to follow-up with primary care provider in 3 - 5 days. Patient questions asked and answered. Patient reports understanding and agreement to treatment plan. ER precautions given. Patient instructed to return to ER immediately for any new or worsening of symptoms including but not limited to increasing SOB, persistent fever, chest pain, intractable vomiting. - Please note that this Emergency Department Report was dictated using [employer]ov[employer] professional midwife technology software, occasionally this can lead to erroneous entry secondary to interpretation by the dictation equipment. Labs Test 04/24/18 12:21 Urine Color Pale yellow Urine Appearance Clear Urine pH 7 (4.5-8.0) Urine Specific [place] 1.005 (1.005-1.035) Urine Protein Negative (NEGATIVE) Urine Glucose (UA) Negative (NEGATIVE) Urine Ketones Negative (NEGATIVE) Urine Occult Blood Negative (NEGATIVE) Urine Nitrite Negative (NEGATIVE) Urine Bilirubin Negative (NEGATIVE) Urine Urobilinogen Normal MG/DL (0.0-1.0) Urine Leukocyte Esterase 2+ (NEGATIVE) Urine RBC 0-2 /HPF (0 - 2) Urine WBC 2-4 /HPF (0 - 2) Urine Squamous Epithelial Cells Few /LPF (NONE/OCC) Urine Bacteria Moderate /HPF (NONE) Urine HCG, Qualitative Negative (NEGATIVE) (Corby Palomino P.A.) Chest X-Ray Diagnostic Results Chest X-Ray Diagnostic Results : Chest X-Ray Ordered: Yes # of Views/Limited/Complete: 1 View Indication: Chest Pain EP Interpretation: Yes PA Xray: Interpretation reviewed, by supervising MD, and agrees with findings. Interpretation: no consolidation, no effusion, no pneumothorax, no acute cardiopulmonary disease Impression: No acute disease GREGORY ScribBarney Palomino PA-C (Corby Palomino P.A.) Chest X-Ray Diagnostic Results : Electronically Signed by: Radha documentation reviewed by me and is accurate, Qasim Haley MD. (Qasim Haley M.D.) Status: improved (Corby Palomino) Disposition: HOME, SELF-CARE Condition: Stable Scripts Acetaminophen* (TYLENOL EXTRA STRENGTH*) 500 Mg Tablet 500 MG ORAL Q8H PRN for Prn Headache/Temp > 101, #30 TAB 0 Refills Prov: Corby Palomino 04/24/18 Patient Instructions: Migraine Headache, [id number], Viral Respiratory Infection, [id number] Additional Instructions: Followup with primary care provider in 3 -5 days. Followup with neurologist to discuss migraine. Followup with mental health professional. Take medications as directed. Patient questions asked and answered. ER precautions given, patient instructed to return to ER immediately for any new or worsening of symptoms including but not limited to chest pain, shortness of breath, intractable vomiting, abdominal pain, syncope. saltwater gargles for sore throat. Drink plenty of fluids. BRAT diet: bananas, rice, apple sauce, toast. Corby Palomino Apr 24, 2018 12:20 Qasim Haley M.D. Apr 25, 2018 01:05
[2018-04-24 12:29] LABS: APPEARANCE,URINE CLEAR; BILIRUBIN, URINE NEGATIVE (NEGATIVE); COLOR,URINE PALE YELLOW; GLUCOSE, URINE (UA) NEGATIVE (NEGATIVE); KETONES,URINE NEGATIVE (NEGATIVE); LEUKOCYTE ESTERASE ,URINE 2+ (NEGATIVE); NITRITE,URINE NEGATIVE (NEGATIVE); PH,URINE 7 (4.5-8.0); PROTEIN,URINE NEGATIVE (NEGATIVE); UROBILINOGEN,URINE NORMAL MG/DL (0.0-1.0)
[2018-04-24] MEDS ORDERED: Acetaminophen 500mg (ES) tab ORAL ONE (12:30)
[2018-04-24] MEDS ORDERED: Lidocaine 2% Visc 15ml soln ORAL ONE (12:30)
[2018-04-24 13:02] VITALS: BP 120/80
[2018-04-24] MEDS ORDERED: TYLENOL EXTRA500 MG ORAL (13:08)
--- NOTE | 2018-04-24 13:19 | Diagnostic Imaging Report ---
Indication: Chest pain Technique: XRAY Chest 1v Comparison: 11/01/2014 Findings: Heart size and mediastinal contours are within normal limits and stable compared to the prior exam allowing for differences in technique. There is no focal consolidation, pneumothorax or pleural effusion. Osseous structures demonstrate no acute abnormality. Impression: No radiographic evidence of acute cardiopulmonary disease.
== END 2018-04-24 13:02 | disposition home or self-care (01) ==
LOC: EMR 12:35
DX: B34.9 Viral infection, unspecified (principal); R53.1 Weakness; J45.909 Unspecified asthma, uncomplicated; Z91.010 Allergy to peanuts
CPT/HCPCS: 71045; 81003; 81025; 87086; 99284

== ENCOUNTER 2018-05-01 15:30 | Emergency (ER) | payer MEDICAID ==
[~2018-05-01] VITALS: Ht 157.5 cm; Wt 73.9 kg
[~2018-05-01 15:30] MED LIST changes: +TYLENOL EXTRA500 MG ORAL
[2018-05-01 16:02] VITALS: BP 105/54
[2018-05-01] MEDS ORDERED: BENADRYL25 MG ORAL (16:09)
[2018-05-01] MEDS ORDERED: OPCON-A EYE DRO15 ML OP (16:09)
--- NOTE | 2018-05-01 16:10 | Emergency Room Report ---
History of Present Illness General Chief Complaint: Eye Problems Source: Patient Present Illness HPI 22-year-old female patient presents to the ER complaining of right eye swelling and itchiness for the past few days. Reports history of similar symptoms in the past, states that "this always happens during this time of the year because of allergies". Reports she has been scratching and rubbing her eye. Denies wearing contacts. Denies taking any medications at home for relief of symptoms. Denies vision loss or vision changes. Denies fever, chest pain, shortness of breath, vomiting, photophobia, vertigo. reports white colored crusting and right eye this morning. denies foreign body sensation, denies loss of vision, denies eye pain. Reports discomfort due to swelling of the eyelid. Denies exposure to chemicals in eye. Denies bug bite or trauma. Allergies: Coded Allergies: PEANUT (Verified Allergy, Severe, Hives, 02/17/17) LACTOSE (Verified Allergy, Mild, 02/17/17) Uncoded Allergies: DAIRY PRODUCTS (Allergy, Unknown, 07/10/17) Patient History Past Medical History: see triage record Last Menstrual Period: 04/01/18 Now: No : 1 Para: 1 Reviewed Nursing Documentation: PMH: Agreed; PSxH: Agreed Nursing Documentation-PMH Hx Cardiac Problems: No Hx Asthma: Yes Hx Gastrointestinal Problems: No Hx Neurological Problems: No Review of Systems All Other Systems: negative except mentioned in HPI Physical Exam Vital Signs Date Time Temp Pulse Resp B/P (MAP) Pulse Ox O2 Delivery O2 Flow Rate FiO2 05/01/18 15:34 98.2 72 18 110/66 98 Room Air 98.2 Sp02 EP Interpretation: reviewed, normal General Appearance: well appearing, no apparent distress, alert, GCS 15, non- toxic Head: normocephalic, atraumatic Eyes: right eye other - upper right eye lid edema, no erythema, no warmth to touch; bilateral eye normal inspection, bilateral eye PERRL, bilateral eye EOMI Medical Decision Making PA Attestation Dr. Painter is my supervising Physician whom patient management has been discussed with. Diagnostic Impression: Primary Impression: Allergic conjunctivitis ER Course Pt. presents to the ED c/o swollen eyes. Ddx considered but are not limited to allergic conjunctivitis, bacterial conjunctivitis, orbital cellulitis, URI, sinusitis. Vital signs: are WNL, pt. is afebrile ORDERS: none required at this time, the diagnosis is clinical ED COURSE: No pain with eye movement, no fever, no vision changes, no proptosis, no diplopia, low suspicion for postseptal cellulitis, does not require CT at this time. no erythema or warmth to touch of skin surrounding I, low suspicion for preseptal cellulitis, does not require antibiotic treatment at this time. No injection, no yellow or green crusting noted, low suspicion for bacterial conjunctivitis. Due to history of allergy symptoms and swelling of eyelid, likely allergic conjunctivitis causing symptoms. Provide patient with treatment. Do not touch eye. Wash hands thoroughly. Follow-up with home economics teacher. DISCHARGE: Rx provided for Benadryl. Informed medication may cause drowsiness. Rx provided for Opcon-A eye drops. At this time pt. is stable for d/c to home. Patient is resting comfortably, in no acute distress, nontoxic appearing. Will provide printed patient care instructions, and any necessary prescriptions. Patient instructed to follow up with debit agent and discuss further follow up with sack repairer. Care plan and follow up instructions have been discussed with the patient prior to discharge. Patient questions asked and answered. Patient reports understanding and agreement to treatment plan. ER precautions given. Patient instructed to return to ER immediately for any new or worsening of symptoms. - Please note that this Emergency Department Report was dictated using [employer] stacker technology software, occasionally this can lead to erroneous entry secondary to interpretation by the dictation equipment. Last Vital Signs Date Time Temp Pulse Resp B/P (MAP) Pulse Ox O2 Delivery O2 Flow Rate FiO2 05/01/18 15:34 98.2 72 18 110/66 98 Room Air 98.2 Disposition: HOME, SELF-CARE Condition: Stable Scripts Naphazoline Hcl/Pheniramine (OPCON-A EYE DROPS) 15 Ml Drops 2 DROP OP TID, #15 ML Prov: Corby Palomino.Jerel 05/01/18 Diphenhydramine Hcl* (BENADRYL*) 25 Mg Capsule 25 MG ORAL QHS PRN for Itching, #30 CAP Prov: Corby Palomino.A. 05/01/18 Patient Instructions: Allergic Conjunctivitis, [id number], Viral Conjunctivitis Additional Instructions: Followup with primary care provider in 3 -5 days. Take medications as directed. Side effect of Benadryl drowsiness, do not take periventricular, driving, operating heavy machinery. Patient questions asked and answered. ER precautions given, patient instructed to return to ER immediately for any new or worsening of symptoms. Do not touch eye. Wash hands thoroughly. Apply cool compresses to eye. Follow-up with home economics teacher. Corby Palomino May 01, 2018 16:10
[2018-05-01 16:14] VITALS: BP 105/54
== END 2018-05-01 16:14 | disposition home or self-care (01) ==
LOC: EMR 16:08
DX: H10.11 Acute atopic conjunctivitis, right eye (principal); Z91.011 Allergy to milk products; Z91.010 Allergy to peanuts; Z91.048 Other nonmedicinal substance allergy status; J45.909 Unspecified asthma, uncomplicated
CPT/HCPCS: 99284

== ENCOUNTER 2018-06-10 13:51 | Emergency (ER) | payer MEDICAID ==
[~2018-06-10] VITALS: Ht 160 cm; Wt 63.5 kg
[~2018-06-10 13:51] MED LIST changes: +BENADRYL25 MG ORAL; +OPCON-A EYE DRO15 ML OP
[2018-06-10] MEDS ORDERED: NKM (14:06)
[2018-06-10 14:17] VITALS: BP 108/59
[2018-06-10] MEDS ORDERED: IBUPROFEN600 MG ORAL (14:32)
[2018-06-10] MEDS ORDERED: ROBAXIN500 MG PO (14:32)
--- NOTE | 2018-06-10 14:32 | Emergency Room Report ---
History of Present Illness General Chief Complaint: General Complaint Source: Patient, Medical Record Present Illness HPI 22-year-old female presents to the emergency department complaining of right sided posterior thoracic pain, and right foot pain, standing long periods of time. gave in december. Denies numbness tingling or loss of sensation or gross motor movements of the extremities, incontinence of bowel or bladder. Denies CP, Palpitations, LOC, AMS , dizziness, Changes in Vision, weakness or a sudden severe headache. Allergies: Coded Allergies: PEANUT (Verified Allergy, Severe, Hives, 02/17/17) LACTOSE (Verified Allergy, Mild, 02/17/17) Uncoded Allergies: DAIRY PRODUCTS (Allergy, Unknown, 07/10/17) Patient History Past Medical History: see triage record Past Surgical History: none Pertinent Family History: none Last Menstrual Period: 04/26/18 Reviewed Nursing Documentation: PMH: Agreed; PSxH: Agreed Nursing Documentation-PMH Past Medical History: No History, Except For Hx Cardiac Problems: No Hx Asthma: Yes Hx Gastrointestinal Problems: No Hx Neurological Problems: No Review of Systems All Other Systems: negative except mentioned in HPI Physical Exam Vital Signs Date Time Temp Pulse Resp B/P (MAP) Pulse Ox O2 Delivery O2 Flow Rate FiO2 06/10/18 14:03 98.6 90 18 108/59 99 Room Air 98.6 Medical Decision Making GREGORY Cancholaation Dr. Haley is my supervising Physician whom patient management has been discussed with. Diagnostic Impression: Primary Impression: Intercostal myalgia Additional Impression: Myalgia ER Course *8 Pt. presents to the ED c/o [ ] Ddx considered but are not limited to Fracture, dislocation, contusion, Sprain/ Strain/Spasm, Epidural abscess, Neoplastic mets. Vital signs: are WNL, pt. is afebrile H&PE are most consistent with musculoskeletal injury will perform imaging to r/ o fractures/dislocations. ORDERS: - X-ray [ ] - negative for fx, Dislocation, or significant soft tissue injury, per preliminary read in ED, and signed by GREGORY Flower, my supervising physician has reviewed, and agrees with my interpretation. ED INTERVENTIONS: - [ ] DISCHARGE: At this time pt. is stable for d/c to home. Will provide printed patient care instructions, and any necessary prescriptions. Care plan and follow up instructions have been discussed with the patient prior to discharge. Last Vital Signs Date Time Temp Pulse Resp B/P (MAP) Pulse Ox O2 Delivery O2 Flow Rate FiO2 06/10/18 14:17 98.6 78 18 108/59 99 Room Air 98.6 Disposition: HOME, SELF-CARE Condition: Stable Scripts Methocarbamol* (ROBAXIN*) 500 Mg Tablet 1000 MG PO TID, #42 TAB 0 Refills Prov: Tatyana Flower 06/10/18 Ibuprofen* (MOTRIN*) 600 Mg Tablet 600 MG ORAL THREE TIMES A DAY, #30 TAB 0 Refills Prov: Tatyana Flower 06/10/18 Departure Forms: Return to Work Return to Work Date: Jun 10, 2018 Work Restrictions: No Prolonged Standing, Desk Work Only Other Restrictions: limited standing x 1 week. Return to Full Activity: Jun 18, 2018 Patient Instructions: Muscle Cramps and Spasms, [id number], Muscle Pain, Adult Additional Instructions: Take medications as directed. Follow up with a Primary Care Provider in 3-5 days, even if your symptoms have resolved. --Please review list of primary care clinics, if you do not already have a primary care provider Return sooner to ED if new symptoms occur, or current symptoms become worse. Do not drink alcohol, drive, or operate heavy machinery while taking Robaxin as this may cause drowsiness. - Please note that this Emergency Department Report was dictated using Card[employer]unchfamily welfare social work professor technology software, occasionally this can lead to erroneous entry secondary to interpretation by the dictation equipment. Tatyana Flower Jun 10, 2018 14:32
[2018-06-10 14:41] VITALS: BP 108/59
== END 2018-06-10 14:41 | disposition home or self-care (01) ==
LOC: EMR 14:40
DX: R07.82 Intercostal pain (principal); M79.1 Myalgia; J45.909 Unspecified asthma, uncomplicated; Z91.011 Allergy to milk products; Z91.010 Allergy to peanuts
CPT/HCPCS: 99283

== ENCOUNTER 2018-06-25 17:45 | Emergency (ER) | payer MEDICAID ==
[~2018-06-25] VITALS: Ht 160 cm; Wt 74.8 kg
[~2018-06-25 17:45] MED LIST changes: +ROBAXIN500 MG PO
[2018-06-25] MEDS ORDERED: Acetaminophen 500mg (ES) tab ORAL ONE (18:30)
--- NOTE | 2018-06-25 18:33 | Emergency Room Report ---
History of Present Illness General Chief Complaint: General Complaint Source: Patient Present Illness HPI 22-year-old female patient presents to ER with complaints of sternal chest pain and right foot pain. Patient previously seen at ER for similar symptoms in the past. States symptoms have been present for the past 7-8 months. Reports was seen by her primary care provider and a specialist, had CT and MRI imaging done and labs performed, states they all came back negative. States that chest pain symptoms are worse when she feels stressed. States has not seen a mental health professional for evaluation of stress. Denies shortness of breath or abdominal pain at this time. Also complaining of right foot pain which has been intermittent during the past several months. Denies history of injury or trauma. States that no imaging had been done, has not seen by client renewal specialist. states has not had menstrual period in the last 2 months, requesting test. Denies dysuria or frequency. Reports mild pelvic pain. Denies hematuria or vaginal discharge. Allergies: Coded Allergies: PEANUT (Verified Allergy, Severe, Hives, 02/17/17) LACTOSE (Verified Allergy, Mild, 02/17/17) Uncoded Allergies: DAIRY PRODUCTS (Allergy, Unknown, 07/10/17) Patient History Past Medical History: see triage record Last Menstrual Period: 05/2018 Reviewed Nursing Documentation: PMH: Agreed; PSxH: Agreed Nursing Documentation-PMH Hx Cardiac Problems: No Hx Asthma: Yes Hx Gastrointestinal Problems: No Hx Neurological Problems: No Review of Systems All Other Systems: negative except mentioned in HPI Physical Exam Vital Signs Date Time Temp Pulse Resp B/P (MAP) Pulse Ox O2 Delivery O2 Flow Rate FiO2 06/25/18 17:53 99.1 86 14 113/74 100 Room Air 99.1 Sp02 EP Interpretation: reviewed, normal General Appearance: well appearing, no apparent distress, alert, GCS 15, non- toxic Head: normocephalic, atraumatic Eyes: bilateral eye normal inspection, bilateral eye PERRL ENT: hearing grossly normal, normal pharynx, no angioedema, normal voice, uvula midline, moist mucus membranes Neck: full range of motion Respiratory: lungs clear, normal breath sounds, no rhonchi, no respiratory distress, no accessory muscle use, no wheezing, speaking full sentences Cardiovascular #1: regular rate, rhythm, no edema Cardiovascular #2: 2+ radial (R), 2+ radial (L), 2+ dorsalis pedis (R), 2+ dorsalis pedis (L) Gastrointestinal: non tender, soft, no mass, non-distended, no guarding, no rebound Genitourinary: no CVA tenderness Musculoskeletal: back normal, digits/nails normal, gait/station normal, normal range of motion, non-tender, other - NVI, no erythema, no edema Neurologic: alert, oriented x3, responsive, motor strength/tone normal, sensory intact Psychiatric: mood/affect normal Skin: no rash Lymphatic: no adenopathy Medical Decision Making PA Attestation Dr. Landry is my supervising Physician whom patient management has been discussed with. Diagnostic Impression: Primary Impression: Non-cardiac chest pain Additional Impressions: Foot pain, right UTI (urinary tract infection) ER Course Pt. presents to the ED c/o chest pain, foot pain, pelvic discomfort. Ddx considered but are not limited to fracture, sprain, strain, contusion, dislocation, arrhythmia, [place], UTI, . No erythema, no warmth to touch, no fever, nontoxic appearing, low suspicion for septic joint. negative Rovsing, negative obturator, patient resting comfortably in no acute distress, low suspicion for appendicitis, does not require abdominal workup or imaging at this time. No abdominal TTP, patient resting comfortably, nontoxic appearing, low suspicion for ovarian torsion, does not require imaging at this time. Vital signs: are WNL, pt. is afebrile Ordered X-ray and pain medication. ER COURSE Provided with pain medication. EKG show no acute ST elevations or arrhythmias. Patient on limiting stress to prevent onset of pain symptoms. Advised patient follow with mental health urgent care or discuss referral from primary care provider for referral to mental health care provider. Advised patient continue to follow-up with doctor chiropractic for further treatment and referral. patient has had previous imaging and workup done, does not require cardiac at this time. Advised on need for stress relief. Denies suicidal or homicidal ideation. UA shows multiple bacteria, patient symptomatic, will provide patient with treatment for UTI. Advised patient to drink plenty fluids. Advised patient to follow up with FERTILIZING MACHINE OPERATOR specialist for further workup due to report of missing menstrual cycle, may be hormonal. Urine negative, advised patient to discuss with FERTILIZING MACHINE OPERATOR specialists and evaluate for further causes of missed menstrual periods. patient states that she has tested routinely for STI, denies concern for STI at this time, advised patient to follow-up with STI clinic for further testing and treatment. Wear condoms during sex to prevent transmission of STI. An X-ray of the right foot shows no acute fracture per the preliminary reading. KAMLA wrap was applied to the right foot and was checked afterwards by me showing good alignment and support with distal neurovascular functioning intact. Patient declined crutches. Patient instructed on RICE method: rest, ice, compression, elevation. Patient instructed on rest, ice and heat. Patient instructed to be WBAT. Contact information for orthopedic urgent care provided, follow-up with urgent care if unable to followup with primary care provider and get referral to practice specialist. Advised to followup with correctional therapy director. Advised on wearing shoe inserts and performing stretching exercises. Followup with primary care provider. Discuss referral to ortho/pain management/ PT as needed. Discuss further imaging with MRI/CT as needed. DISCHARGE: -Rx provided for Tylenol for pain symptoms. -Rx provided for Keflex At this time pt. is stable for d/c to home. Patient is resting comfortably, in no acute distress, nontoxic appearing, talking without difficulty. Will provide printed patient care instructions, and any necessary prescriptions. Patient instructed to follow with primary care provider in 3 - 5 days and to request further follow-up as needed. Care plan and follow up instructions have been discussed with the patient prior to discharge. Take medications as directed. Patient questions asked and answered. Patient reports understanding and agreement to treatment plan. ER precautions given, patient instructed to return to ER immediately for any new or worsening of symptoms. - Please note that this Emergency Department Report was dictated using [employer] bpm developer technology software, occasionally this can lead to erroneous entry secondary to interpretation by the dictation equipment. Labs Test 06/25/18 18:58 Urine Color Yellow Urine Appearance Clear Urine pH 6 (4.5-8.0) Urine Specific Burton 1.015 (1.005-1.035) Urine Protein 1+ (NEGATIVE) Urine Glucose (UA) Negative (NEGATIVE) Urine Ketones Negative (NEGATIVE) Urine Blood Negative (NEGATIVE) Urine Nitrite Negative (NEGATIVE) Urine Bilirubin Negative (NEGATIVE) Urine Urobilinogen 4 MG/DL (0.0-1.0) Urine Leukocyte Esterase 3+ (NEGATIVE) Urine RBC 0-2 /HPF (0 - 2) Urine WBC 5-10 /HPF (0 - 2) Urine Squamous Epithelial Cells Moderate /LPF (NONE/OCC) Urine Bacteria Moderate /HPF (NONE) Urine Mucus Few /LPF (NONE/OCC) Urine HCG, Qualitative Negative (NEGATIVE) EKG Diagnostic Results Rate: normal, tachycardiac, bradycardiac Rhythm: NSR ST Segments: no acute changes ASA given to the pt in ED: No PA Scribe Bryan Palomino PA-C Rhythm Strip Diag. Results EP Interpretation: yes Rate: 66 Rhythm: NSR, no PVC's, no ectopy PA Scribe Bryan Palomino PA-C Other X-Ray Diagnostic Results Other X-Ray Diagnostic Results : X-Ray ordered: right foot # of Views/Limited Vs Complete: 3 View Indication: Pain EP Interpretation: Yes PA Xray: Interpretation reviewed, by supervising MD, and agrees with findings. Interpretation: no dislocation, no soft tissue swelling, no fractures Impression: No acute disease GREGORY Scribe Bryan Palomino PA-C Last Vital Signs Date Time Temp Pulse Resp B/P (MAP) Pulse Ox O2 Delivery O2 Flow Rate FiO2 06/25/18 17:53 99.1 86 14 113/74 100 Room Air 99.1 Disposition: HOME, SELF-CARE Condition: Stable Scripts Cephalexin* (KEFLEX*) 500 Mg Capsule 500 MG ORAL EVERY 12 HOURS, #14 CAP 0 Refills Prov: Corby Palomino 06/25/18 Acetaminophen* (TYLENOL EXTRA STRENGTH*) 500 Mg Tablet 500 MG ORAL Q8H PRN for Prn Headache/Temp > 101, #30 TAB 0 Refills Prov: Corby Palomino 06/25/18 Patient Instructions: Chest Wall Pain, [id number], Foot Sprain, Stress and Stress Management, Urinary Tract Infection, [id number] Additional Instructions: Patient instructed to follow up with primary care provider and discuss further referral to orthopedics/correctional therapy director/physical therapy/pain management as needed. If unable to followup with PCP, followup with orthopedic urgent care in 5-7 days , call to schedule appointment. Discuss followup for continued chest pain. Discuss referral to mental health specialist for stress symptoms. Followup with mental health urgent care if unable to get referral from PCP. Patient instructed on RICE method: rest, ice, compression, elevation. Patient instructed to WBAT. Take medications as directed. Patient questions asked and answered. ER precautions given, patient instructed to return to ER immediately for any new or worsening of symptoms. [facility] [address] [facility] [address] [facility], [address] [email or web address] Corby Palomino Jun 25, 2018 18:33
[2018-06-25] MEDS ORDERED: TYLENOL EXTRA500 MG ORAL (19:03)
[2018-06-25 19:26] LABS: APPEARANCE,URINE CLEAR; BILIRUBIN, URINE NEGATIVE (NEGATIVE); GLUCOSE, URINE (UA) NEGATIVE (NEGATIVE); KETONES,URINE NEGATIVE (NEGATIVE); LEUKOCYTE ESTERASE ,URINE 3+ (NEGATIVE); NITRITE,URINE NEGATIVE (NEGATIVE); PH,URINE 6 (4.5-8.0); PROTEIN,URINE 1+ (NEGATIVE); UROBILINOGEN,URINE 4 MG/DL (0.0-1.0)
[2018-06-25 19:29] LABS: COLOR,URINE YELLOW
[2018-06-25] MEDS ORDERED: CEPHALEXIN500 MG ORAL (20:11)
[2018-06-25 20:20] VITALS: BP 124/70
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
--- NOTE | 2018-06-28 16:12 | Cardiology Report ---
APPROVED REPORT EKG Measurement Heart [id number] Normal sinus rhythm with sinus arrhythmia Normal ECG
== END 2018-06-25 20:20 | disposition home or self-care (01) ==
LOC: EMR 18:00
DX: N39.0 Urinary tract infection, site not specified (principal); R07.89 Other chest pain; M79.671 Pain in right foot
CPT/HCPCS: 81003; 81025; 87086; 93005; 99284

== ENCOUNTER 2018-08-14 19:58 | Emergency (ER) | payer MEDICAID ==
[~2018-08-14] VITALS: Ht 160 cm; Wt 73.0 kg
[~2018-08-14 19:58] MED LIST changes: +CEPHALEXIN500 MG ORAL
[2018-08-14 20:25] VITALS: BP 118/77
[2018-08-14] MEDS ORDERED: Ketorolac 60mg Inj IM ONE (20:45)
[2018-08-14 21:30] VITALS: BP 115/75
--- NOTE | 2018-08-15 14:14 | Emergency Room Report ---
History of Present Illness General Chief Complaint: Pain Source: Patient Present Illness HPI Patient is a 22-year-old female presented after increased dental pain. The patient reports having the seen multiple dentists in the past few days. She states that she had been told that she needs root canal. She reports taking ibuprofen. She states she's taking antibiotics. Patient reports having a continued pain. She denies other locations pain. She reports having pain to the upper and lower on both sides. She denies any trismus. Allergies: Coded Allergies: PEANUT (Verified Allergy, Severe, Hives, 02/17/17) LACTOSE (Verified Allergy, Mild, 02/17/17) Uncoded Allergies: DAIRY PRODUCTS (Allergy, Unknown, 07/10/17) Patient History Past Medical History: see triage record Last Menstrual Period: 08/12/18 Now: No : 1 Para: 1 Reviewed Nursing Documentation: PMH: Agreed; PSxH: Agreed Nursing Documentation-PMH Past Medical History: No History, Except For Hx Cardiac Problems: No Hx Asthma: Yes Hx Gastrointestinal Problems: No Hx Neurological Problems: No Review of Systems All Other Systems: negative except mentioned in HPI Physical Exam Vital Signs Date Time Temp Pulse Resp B/P (MAP) Pulse Ox O2 Delivery O2 Flow Rate FiO2 08/14/18 20:06 98.1 66 17 118/73 98 Room Air General Appearance: well appearing, no apparent distress, alert, GCS 15, non- toxic Head: normocephalic, atraumatic ENT: hearing grossly normal, normal voice Neck: full range of motion, supple Respiratory: no respiratory distress, speaking full sentences Cardiovascular #1: normal inspection Gastrointestinal: normal inspection Musculoskeletal: normal inspection, back normal, digits/nails normal, no calf tenderness Neurologic: normal inspection, alert, oriented x3, normal gait Psychiatric: mood/affect normal Skin: no rash Medical Decision Making Diagnostic Impression: Primary Impression: Pain, dental ER Course Patient presented for dental pain. Differential diagnosis included but was not limited to trigeminal neuralgia, dental abscess, dry socket, osteomyelitis, nerve injury. The patient was noted to have a benign exam. There is no evidence of abscess. The patient is advised to follow up with dentist in 1-2 days. The patient was advised that should be given an injection for pain and that she would need follow-up with her dentist for pain prescriptions. The patient subsequently eloped without notifying staff. Last Vital Signs Date Time Temp Pulse Resp B/P (MAP) Pulse Ox O2 Delivery O2 Flow Rate FiO2 08/14/18 21:30 98.0 80 16 115/75 99 Room Air Status: unchanged Disposition: ELOPED Condition: Stable Referrals: [facility]ERR[facility] (PCP) Patient Instructions: Dental Pain Sanjay Painter MD Aug 15, 2018 14:14
== END 2018-08-14 20:30 | disposition home or self-care (01) ==
LOC: EMR 20:30
DX: K08.89 Other specified disorders of teeth and supporting structures (principal); J45.909 Unspecified asthma, uncomplicated; Z91.010 Allergy to peanuts; Z91.018 Allergy to other foods
CPT/HCPCS: 99281

== ENCOUNTER 2019-04-19 15:55 | Emergency (ER) | payer SELFPAY ==
[~2019-04-19] VITALS: Ht 160 cm; Wt 59.0 kg
[2019-04-19 16:13] VITALS: BP 102/63
--- NOTE | 2019-04-19 16:13 | NUR ---
ED Nurse Note: pt walked in due to pink eye started 3 daysa go. pt denies pain. only itchiness. pt also complains of discomfort on the stitch site on her right upper lip. will continue to monitor.
--- NOTE | 2019-04-19 16:27 | Emergency Room Report ---
History of Present Illness General Chief Complaint: Eye Problems Source: Patient Present Illness HPI 23-year-old female with history of migraine headache here complaining of worsening migraine headache for the past 3 weeks denying photophobia or nausea vomiting. Patient reports that she has been previously diagnosed by a neurologist and does not follow-up with her primary care provider in this regard. Patient also complains of left eye pain and discharge as well as irritation. Denies rhinorrhea and congestion. Denies injury to the eye and blurry vision. Also is requesting removal of sutures from her right upper lip that has been in place for the past 2 weeks. Denies fever and chills, chest pain, shortness of breath, palpitation, dizziness, vertigo, and all other associated symptoms. Cannot take any medication for her symptoms. Allergies: Coded Allergies: PEANUT (Verified Allergy, Severe, Hives, 02/17/17) LACTOSE (Verified Allergy, Mild, 02/17/17) Uncoded Allergies: DAIRY PRODUCTS (Allergy, Unknown, 07/10/17) Patient History Past Medical History: see triage record Past Surgical History: unable to obtain Pertinent Family History: none Last Menstrual Period: 04/15/19 Now: No Immunizations: UTD Reviewed Nursing Documentation: PMH: Agreed; PSxH: Agreed Nursing Documentation-PMH Past Medical History: No History, Except For Hx Cardiac Problems: No Hx Asthma: Yes Hx Gastrointestinal Problems: No Hx Neurological Problems: No Review of Systems All Other Systems: negative except mentioned in HPI Physical Exam Vital Signs Date Time Temp Pulse Resp B/P (MAP) Pulse Ox O2 Delivery O2 Flow Rate FiO2 04/19/19 16:08 98.1 62 17 102/63 (76) 99 Room Air Sp02 EP Interpretation: reviewed, normal General Appearance: normal inspection, well appearing, no apparent distress, alert, GCS 15 Head: normocephalic, atraumatic Eyes: left eye other - Minimal yellow discharge from left eye and conjunctive are injected; bilateral eye normal inspection, bilateral eye PERRL ENT: normal ENT inspection, hearing grossly normal, normal pharynx, no angioedema Neck: normal inspection, full range of motion, supple Respiratory: normal inspection, chest non-tender, lungs clear, normal breath sounds, no respiratory distress, no wheezing Cardiovascular #1: normal inspection, regular rate, rhythm, no edema, no murmur , normal capillary refill Gastrointestinal: normal inspection, non tender, soft Genitourinary: no CVA tenderness Musculoskeletal: normal inspection, back normal, digits/nails normal Neurologic: normal inspection, alert, oriented x3, responsive Psychiatric: normal inspection, judgement/insight normal Skin: no rash Lymphatic: normal inspection, no adenopathy Procedures Additional Procedure Procedure Narrative 5 sutures removed from right upper lip Medical Decision Making PA Attestation All diagnoses and treatment plans were reviewed and discussed with my supervising physician Dr. Haley Diagnostic Impression: Primary Impression: Conjunctivitis Additional Impressions: Encounter for removal of sutures Migraine ER Course 23-year-old female with history of migraine headache here complaining of worsening migraine headache for the past 3 weeks denying photophobia or nausea vomiting. Patient reports that she has been previously diagnosed by a neurologist and does not follow-up with her primary care provider in this regard. Patient also complains of left eye pain and discharge as well as irritation. Denies rhinorrhea and congestion. Denies injury to the eye and blurry vision. Also is requesting removal of sutures from her right upper lip that has been in place for the past 2 weeks. Denies fever and chills, chest pain, shortness of breath, palpitation, dizziness, vertigo, and all other associated symptoms. Cannot take any medication for her symptoms. Ddx considered but are not limited to: bacterial conjunctivitis, allergic conjunctivitis, viral conjunctivitis, periorbital cellulitis, global trauma Vital signs: are WNL, pt. is afebrile H&PE are most consistent with: Left eye conjunctivitis, encounter for suture removal noninfected, migraine headache ORDERS: Ofloxacin eyedrops, Excedrin, Bactroban ED INTERVENTIONS: Suture removal DISCHARGE: At this time pt. is stable for d/c to home. Will provide printed patient care instructions, and any necessary prescriptions. Care plan and follow up instructions have been discussed with the patient prior to discharge. I advised the patient to follow-up with a primary care provider for further management of migraine headache. At this time this is a chronic condition and no further imaging or assessment is needed the patient stable and has a known diagnosis of migraine headache without aura Last Vital Signs Date Time Temp Pulse Resp B/P (MAP) Pulse Ox O2 Delivery O2 Flow Rate FiO2 04/19/19 16:08 98.1 62 17 102/63 (76) 99 Room Air Status: improved Disposition: HOME, SELF-CARE Condition: Stable Scripts Mupirocin (MUPIROCIN) 15 Gm Cream..g. 1 APPLIC TOPIC THREE TIMES A DAY, #15 GM Prov: Zaida Rodney 04/19/19 Aspirin/Acetaminophen/Caffeine (EXCEDRIN EXTRA STRENGTH CAPLET) 1 Each Tablet 1 EACH PO BID, #20 TAB Prov: Zaida Rodney 04/19/19 Ofloxacin (Ofloxacin) 5 Ml Drops 2 DROP OP Q6HR, #5 ML Prov: Zaida Rodney 04/19/19 Referrals: NOT CHOSEN [facility],REFERRING (PCP) Patient Instructions: Bacterial Conjunctivitis, [id number], Migraine Headache , [id number] Additional Instructions: See primary doctor for follow-up of migraine headache avoid wearing eye make-up change pillowcase avoid cross-contamination between the 2 eyes. Zaida Rodney Apr 19, 2019 16:27
[2019-04-19] MEDS ORDERED: MUPIROCIN15 GM TOPIC (16:28)
[2019-04-19] MEDS ORDERED: OFLOXACIN10 ML OP (16:28)
[2019-04-19] MEDS ORDERED: EXCEDRIN EXTRA1 EAC1 PO (16:28)
[2019-04-19 16:35] VITALS: BP 102/63
--- NOTE | 2019-04-19 16:35 | NUR ---
ER DISCHARGE NOTE: Patient is cleared to be discharged per ERMD, pt is aox4, on room air, with stable vital signs. pt was given dc and prescription instructions, pt was able to verbalize understanding, pt id band removed without complications. pt is able to ambulate with steady gait. pt took all belongings.
== END 2019-04-19 16:35 | disposition home or self-care (01) ==
LOC: EMR 16:15
DX: G43.909 Migraine, unspecified, not intractable, without status migrainosus (principal); H10.9 Unspecified conjunctivitis; Z91.011 Allergy to milk products; Z91.010 Allergy to peanuts
CPT/HCPCS: 99283

== ENCOUNTER 2019-12-01 16:22 | Emergency (ER) | payer MEDICAID, OTHER ==
[~2019-12-01] VITALS: Ht 157.5 cm; Wt 57.2 kg
[~2019-12-01 16:22] MED LIST changes: +EXCEDRIN EXTRA1 EAC1 PO; +MUPIROCIN15 GM TOPIC; +OFLOXACIN10 ML OP
[2019-12-01 16:54] VITALS: BP 107/64
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
[2019-12-01] MEDS ORDERED: Tetracaine 0.5% Opth 4ml Soln RIGHT EYE ONE (17:00)
[2019-12-01] MEDS ORDERED: Fluorescein Strips RIGHT EYE ONE (17:00)
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
[2019-12-01 18:06] VITALS: BP 110/71
--- NOTE | 2019-12-01 18:06 | NUR ---
ER DISCHARGE NOTE: Patient is cleared to be discharged per ERMD, pt is aox4, on room air, with stable vital signs. pt was given dc and prescription instructions, pt was able to verbalize understanding, pt id band removed. pt is able to ambulate with steady gait. pt took all belongings.
[2019-12-01] MEDS ORDERED: PRENATAL + DHA1 EAC1 PO (18:21)
[2019-12-01] MEDS ORDERED: CIPROFLOXACIN2.5 ML OP (18:21)
[2019-12-01] MEDS ORDERED: DICLOFENAC SOD2.5 ML RIGHT EYE (18:21)
[2019-12-01] MEDS ORDERED: TYLENOL EXTRA500 MG ORAL (18:21)
== END 2019-12-01 18:10 | disposition home or self-care (01) ==
LOC: EMR 18:10
DX: S05.01XA Injury of conjunctiva and corneal abrasion without foreign body, right eye, initial encounter (principal); J45.909 Unspecified asthma, uncomplicated; X58.XXXA Exposure to other specified factors, initial encounter; Y93.89 Activity, other specified; Y92.9 Unspecified place or not applicable; Z91.010 Allergy to peanuts; Z91.011 Allergy to milk products; Z33.1 Pregnant state, incidental
CPT/HCPCS: 99283

== ENCOUNTER 2020-04-08 16:34 | Emergency (ER) | payer MEDICAID, OTHER ==
[~2020-04-08] VITALS: Ht 157.5 cm; Wt 57.2 kg
[~2020-04-08 16:34] MED LIST changes: +CIPROFLOXACIN2.5 ML OP; +DICLOFENAC SOD2.5 ML RIGHT EYE; +PRENATAL + DHA1 EAC1 PO
[2020-04-08 16:46] VITALS: BP 113/71
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
--- NOTE | 2020-04-08 16:51 | NUR ---
ED Nurse Note: ice pack was provided
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
[2020-04-08] MEDS ORDERED: Ketorolac 60mg Inj IM ONE (17:00)
--- NOTE | 2020-04-08 17:19 | NUR ---
ED Nurse Note: sling was aplyed to pt's right arm
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
[2020-04-08] MEDS ORDERED: ACETAMINOPHEN-1 EAC1 ORAL (18:08)
[2020-04-08] MEDS ORDERED: IBUPROFEN600 M1 ORAL (18:08)
[2020-04-08 18:20] VITALS: BP 113/71
--- NOTE | 2020-04-08 18:20 | NUR ---
ED Nurse Note: Pt cleared by health care Provider for discharge. DC instructions/prescription was given and explained to pt and verbalized understanding of teachings. All medical deviecs such as ID band removed. Pt is AAO x4, ambulatory and left with all personal belongings.
== END 2020-04-08 18:20 | disposition home or self-care (01) ==
LOC: EMR 16:50
DX: S62.642A Nondisplaced fracture of proximal phalanx of right middle finger, initial encounter for closed fracture (principal); X58.XXXA Exposure to other specified factors, initial encounter; Y92.9 Unspecified place or not applicable; Z91.011 Allergy to milk products; Z91.010 Allergy to peanuts
CPT/HCPCS: 29125; 73130; 96372; Z7502; 99283